=== PATIENT | female | born 1995 | race Caucasian/White ===

== ENCOUNTER 2021-02-22 09:13 | Day surgery (SDC) | payer OTHER ==
[~2021-02-22] VITALS: Ht 157.5 cm; Wt 71.3 kg
[2021-02-22] MEDS ORDERED: ADALAT CC60 MG PO (10:14)
[2021-02-22 10:36] VITALS: BP 132/91; PULSE 110; TEMP 97.3
[2021-02-22 11:43] VITALS: BP 118/79; PULSE 92; TEMP 97.7
[2021-02-22 11:45] VITALS: BP 113/78; PULSE 90
[2021-02-22 12:00] VITALS: BP 114/76; PULSE 76
[2021-02-22 12:15] VITALS: BP 132/91; PULSE 110
--- NOTE | 2021-02-22 12:27 | NUR ---
1143 Pt returns from endo procedure via cart and RN assist to [facility]. Pt ambulates from cart to recliner with RN assist. Monitors on and alarms set. Call light within reach. Report received from LEONEL Barrientos. Pt alert and oriented. Pt requests applesauce and water. Pt denies any pain or nausea. 1155 Pt taking food and drink well. No complications noted. 1223 Discharge instructions given to pt and . All questions answered to their satisfaction. Handed to pt are a thank you card and discharge information. 1227 Pt transferred out of the hospital via wheelchair and this RN assist, to private vehicle driven by pt's .
== END 2021-02-22 12:27 | disposition home or self-care (01) ==
LOC: SDCO 09:13
DX: K92.1 Melena (principal); K62.89 Other specified diseases of anus and rectum; R19.4 Change in bowel habit; R94.5 Abnormal results of liver function studies; R19.7 Diarrhea, unspecified; D72.829 Elevated white blood cell count, unspecified; I10 Essential (primary) hypertension; Z90.89 Acquired absence of other organs; Z79.899 Other long term (current) drug therapy; Z20.822 Contact with and (suspected) exposure to COVID-19; Z87.19 Personal history of other diseases of the digestive system; Z80.0 Family history of malignant neoplasm of digestive organs
CPT/HCPCS: J2704; J7030